=== PATIENT | female | born 1970 | race Caucasian/White ===

== ENCOUNTER 2017-05-13 15:58 | Emergency (ER) | payer MEDICAID ==
--- NOTE | 2017-05-13 16:33 | Emergency Department Record ---
History of Present Illness - General Chief Complaint: Fever Stated Complaint: FEVER/JUAN Time Seen by Provider: 05/13/17 16:25 Source: Patient Mode of Arrival: Ambulatory Limitations: No limitations - History of Present Illness Initial Comments: The patient is here due to a cough, congestion, runny nose and low grade fever for 2-3 days. She did have a fever of 101 last evening but today it is improved. She has had no antipyretics for at least 5 hours and now no fever. She is coughing off and on but not having any sputum production. The patient does have nasal congestion and did have a ST last night. She does have a hx of RA and is on immunosupressives so she is very concerned when she gets ill. MD Complaint: Fever, Malaise Onset/Timin -: Days(s) Maximum Temperature: 101 F Temperature Source: Oral Context: On immunosuppressant(s) Associated Symptoms: Cough, Nasal congestion, Rhinorrhea, Shortness of breath Treatments Prior to Arrival: Acetaminophen Treatment Prior to Arrival Comment:: Nyquil - Related Data Previous Rx's Medication Instructions Recorded Lisinopril 10 mg PO DAILY #30 tab 07/18/16 Allergies Allergy/AdvReac Type Severity Reaction Status Date / Time egg Allergy NAUSEA AND Verified 05/13/17 16:07 VOMITING Latex, Natural Rubber Allergy RASH Verified 05/13/17 16:07 naproxen Allergy NAUSEA AND Verified 05/13/17 16:07 VOMITING NSAIDS (Non-Steroidal Allergy vertigo Verified 05/13/17 16:07 Anti-Inflamma sulfamethoxazole Allergy RAPID Verified 05/13/17 16:07 [From Bactrim] HEART RATE trimethoprim [From Bactrim] Allergy RAPID Verified 05/13/17 16:07 HEART RATE [id number] Antimigraine Allergy ALTERED Verified 05/13/17 16:07 Agents MENTAL STATUS flu vaccine Allergy HIVES Uncoded 02/06/16 19:16 Travel Screening - Travel/Exposure Within Last 30 Days Have you traveled within the last 30 days?: No - Travel/Exposure Within Last Year Have you traveled outside the [place] in the last year?: No - Additonal Travel Details Have you been exposed to anyone with a communicable illness?: No - Travel Symptoms Symptom Screening: None Review of Systems Constitutional: Reports: Chills, Fever, Malaise Eyes: Denies: Eye discharge ENT: Reports: Congestion Respiratory: Reports: Cough. Denies: Dyspnea, Hemoptysis, Wheezes Past Medical History - SOCIAL HISTORY Smoking Status: Never smoker Alcohol Use: None Drug Use: None - RESPIRATORY Hx Respiratory Disorders: No - CARDIOVASCULAR Hx Cardio Disorders: No - NEURO Hx Neuro Disorders: Yes Hx Headaches: Yes - GI Hx GI Disorders: No - Hx Genitourinary Disorders: No - ENDOCRINE Hx Endocrine Disorders: No - MUSCULOSKELETAL Hx Musculoskeletal Disorders: Yes Hx Arthritis: Yes (Rheumatoid) Comment:: fibromyalgia - PSYCH Hx Psych Problems: No - HEMATOLOGY/ONCOLOGY Hx Hematology/Oncology Disorders: No Family Medical History Any Significant Family History?: Yes Family Hx Comment (NOT TO BE USED IN PLACE OF ITEMS BELOW): Parkinson's w/mom Hx Diabetes: Father Hx Heart Disease: Father, Brother/Sister Hx HTN: Father, Brother/Sister Hx Kidney Disease: Father, Brother/Sister Physical Exam - General General Appearance: Alert, Oriented x3, Cooperative, No acute distress - Head Head exam: Atraumatic, Normocephalic, Normal inspection - Eye Eye exam: Normal appearance, PERRL - ENT ENT exam: Normal exam, Mucous membranes moist, Normal external ear exam, Normal orophraynx, TM's normal bilaterally Throat exam: Normal inspection. negative: Tonsillar erythema, Tonsillar exudate - Neck Neck exam: Normal inspection, Full ROM. negative: Tenderness - Respiratory Respiratory exam: Normal lung sounds bilaterally. negative: Rales, Respiratory distress, Rhonchi, Stridor - Cardiovascular Cardiovascular Exam: Regular rate, Normal rhythm, Normal heart sounds - GI/Abdominal GI/Abdominal exam: Soft, Normal bowel sounds. negative: Tenderness - Extremities Extremities exam: Normal inspection, Full ROM, Normal capillary refill. negative: Tenderness - Neurological Neurological exam: Alert, Normal gait. negative: Abnormal gait, Motor sensory deficit Course Vital Signs 05/13/17 16:09 Temperature 98.6 F Pulse Rate 120 H Respiratory 20 Rate Pulse Ox 94 L - Reevaluation(s) Reevaluation #1: The patient's care will be turned over to Dr. Simental at 17:10. 05/13/17 17:12 Medical Decision Making - Lab Data Result diagrams: 05/13/17 16:40 05/13/17 16:40 Disposition Forms: Patient Portal Access Quality - Quality Measures Quality Measures: N/A - Blood Pressure Screening View Details: Yes Does Patient Have Any of the Following: No Blood Pressure Classification: Pre-Hypertensive BP Reading Systolic Measurement: 140 Diastolic Measurement: 87 Screening for High Blood Pressure: < Pre-Hypertensive BP, F/U Documented > [ G8950] Pre-Hypertensive Follow-up Interventions: Referral to alternative/primary care provider.
[2017-05-13] MEDS: ACETAMINOPHEN 325 MG TAB PO ONE (16:46)
[2017-05-13] MEDS: PROMETHAZINE W/CODEINE 10ML UD PO ONE (16:47)
[2017-05-13] MEDS: 0.9 % SODIUM CHLORIDE 1,000 ML BAG IV ONE (16:47)
[2017-05-13 16:52] LABS: BASO % 0.2 % (0-6); GRAN % 67.5 % (47-80); HEMATOCRIT 44.1 % (35.0-47.0); HEMOGLOBIN 15.1 gm/dl (11.6-16.0); LYMPH % 16.9 % (16-45); MEAN CELL VOLUME 85.8 fl (81-97); MEAN CORPUSCULAR HEMOGLOBIN 29.4 pg (27-33); MEAN CORPUSCULAR HGB CONC 34.2 g/dl (32-36); MEAN PLATELET VOLUME 10.1 fl (7.4-10.4); MONO % 11.4 % (0-9); PLATELET COUNT 232 K/uL (130-400); RED BLOOD COUNT 5.14 M/uL (3.80-5.40)
[2017-05-13 17:15] LABS: BLOOD UREA NITROGEN 25.2 mg/dL (12.6-42.6); C-REACTIVE PROTEIN 8.25 mg/L (<5.0); CREATININE 0.7 mg/dL (0.5-0.9); EST GLOMERULAR FILTRATION RATE > 60 mL/min; GLUCOSE,RANDOM 109 mg/dL (74-109)
[2017-05-13] MEDS ORDERED: LEVOFLOXACIN/D5W 750 MG/150 ML BAG IVPB SCH (17:15)
[2017-05-13] MEDS: LEVOFLOXACIN/D5W 750 MG/150 ML BAG IVPB ONE (17:16)
--- NOTE | 2017-05-13 17:33 | Emergency Department Record ---
History of Present Illness - General Chief Complaint: Fever Stated Complaint: FEVER/JUAN Time Seen by Provider: 05/13/17 16:25 Source: Patient Mode of Arrival: Ambulatory Limitations: No limitations - History of Present Illness Onset/Timin -: Days(s) Treatments Prior to Arrival: Acetaminophen Treatment Prior to Arrival Comment:: Nyquil - Related Data Previous Rx's Medication Instructions Recorded Lisinopril 10 mg PO DAILY #30 tab 07/18/16 Amoxicillin/Potassium Clav 1 each PO BID #14 tab.er.12h 05/13/17 [Augmentin Xr 1,000-62.5 Tab] Azithromycin [Zithromax] 250 mg PO DAILY #4 tablet 05/13/17 Allergies Allergy/AdvReac Type Severity Reaction Status Date / Time egg Allergy NAUSEA AND Verified 05/13/17 16:07 VOMITING Latex, Natural Rubber Allergy RASH Verified 05/13/17 16:07 naproxen Allergy NAUSEA AND Verified 05/13/17 16:07 VOMITING NSAIDS (Non-Steroidal Allergy vertigo Verified 05/13/17 16:07 Anti-Inflamma sulfamethoxazole Allergy RAPID Verified 05/13/17 16:07 [From Bactrim] HEART RATE trimethoprim [From Bactrim] Allergy RAPID Verified 05/13/17 16:07 HEART RATE [id number] Antimigraine Allergy ALTERED Verified 05/13/17 16:07 Agents MENTAL STATUS flu vaccine Allergy HIVES Uncoded 02/06/16 19:16 Travel Screening - Travel/Exposure Within Last 30 Days Have you traveled within the last 30 days?: No - Travel/Exposure Within Last Year Have you traveled outside the [place] in the last year?: No - Additonal Travel Details Have you been exposed to anyone with a communicable illness?: No - Travel Symptoms Symptom Screening: None Review of Systems Constitutional: Reports: Chills, Fever, Malaise Eyes: Denies: Eye discharge ENT: Reports: Congestion Respiratory: Reports: Cough. Denies: Dyspnea, Hemoptysis, Wheezes Past Medical History - SOCIAL HISTORY Smoking Status: Never smoker Alcohol Use: None Drug Use: None - RESPIRATORY Hx Respiratory Disorders: No - CARDIOVASCULAR Hx Cardio Disorders: No - NEURO Hx Neuro Disorders: Yes Hx Headaches: Yes - GI Hx GI Disorders: No - Hx Genitourinary Disorders: No - ENDOCRINE Hx Endocrine Disorders: No - MUSCULOSKELETAL Hx Musculoskeletal Disorders: Yes Hx Arthritis: Yes (Rheumatoid) Comment:: fibromyalgia - PSYCH Hx Psych Problems: No - HEMATOLOGY/ONCOLOGY Hx Hematology/Oncology Disorders: No Family Medical History Any Significant Family History?: Yes Family Hx Comment (NOT TO BE USED IN PLACE OF ITEMS BELOW): Parkinson's w/mom Hx Diabetes: Father Hx Heart Disease: Father, Brother/Sister Hx HTN: Father, Brother/Sister Hx Kidney Disease: Father, Brother/Sister Physical Exam - General Limitations: No limitations Course Vital Signs 05/13/17 05/13/17 16:09 16:58 Temperature 98.6 F Pulse Rate 120 H Pulse Rate [ 114 H Pulse Ox Probe] Respiratory 20 18 Rate Blood Pressure 140/87 [Left Arm] Pulse Ox 94 L 94 L - Reevaluation(s) Reevaluation #1: The case was signed out by Dr Diego at the bedside Labs were reviewed Influenza Swab was sent and the CXR was reviewed Radiology read was consistent with atelectasis or infiltrate in the left base Dr Diego ordered IV Levaquin and the patient was updated 05/13/17 17:26 Reevaluation #2: The Influenza tests were negative The patient is doing well with improved HR She is 97 % on RA The Levaquin was completed She was given DC instructions as well has instructions for a recheck or return to the ED if any concerns. 05/13/17 17:59 The patient received most of the Levaquin and developed hives to the left arm She will be placed on both Augmentin and Zithromax as an outpatient given her potential immune suppression No JUAN, throat or facial swelling. No diffuse hives. 05/13/17 18:11 She will be instructed to list Levaquin as an allergy 05/13/17 18:18 Medical Decision Making - Lab Data Result diagrams: 05/13/17 16:40 05/13/17 16:40 Lab Results 05/13/17 05/13/17 Range/Units 16:40 16:40 WBC 9.0 (4.2-12.2) K/uL RBC 5.14 (3.80-5.40) M/uL Hgb 15.1 (11.6-16.0) gm/dl Hct 44.1 (35.0-47.0) % MCV 85.8 (81-97) fl MCH 29.4 (27-33) pg MCHC 34.2 (32-36) g/dl RDW 13.0 (11.5-14.5) % Plt Count 232 (130-400) K/uL MPV 10.1 (7.4-10.4) fl Gran % 67.5 (47-80) % Lymphocytes % 16.9 (16-45) % Monocytes % 11.4 H (0-9) % Eosinophils % 4.0 (0-6) % Basophils % 0.2 (0-6) % Sodium 139 (136-145) mmol/L Potassium 3.6 (3.4-4.5) mmol/L Chloride 101 (98-107) mmol/L Carbon Dioxide 25.0 (22-29) mmol/L Anion Gap 13.0 (7-16) BUN 25.2 (12.6-42.6) mg/dL Creatinine 0.7 (0.5-0.9) mg/dL Estimated GFR > 60 mL/min Random Glucose 109 (74-109) mg/dL Calcium 9.0 (8.6-10.0) mg/dL C-Reactive Protein 8.25 H (<5.0) mg/L Disposition Disposition: Discharge Clinical Impression: Pneumonia Qualifiers: Pneumonia type: due to unspecified organism Laterality: left Lung location: unspecified part of lung Qualified Code(s): J18.9 - Pneumonia, unspecified organism Disposition: Home, Self-Care Condition: (1) Good Instructions: Pneumonia (ED) Additional Instructions: Return immediately if worse, fever, vomiting or short of breath Return for a recheck in the ER any time if you have any concerns about your cough List Levaquin as an allergy Take the Augmentin and Zithromax as directed Call your Doctor on Monday for close follow up and a recheck in the office Prescriptions: Amoxicillin/Potassium Clav [Augmentin Xr 1,000-62.5 Tab] 1 each PO BID #14 tab.er.12h Azithromycin [Zithromax] 250 mg PO DAILY #4 tablet Forms: Patient Portal Access Time of Disposition: 18:01 Quality - Quality Measures Quality Measures: N/A - Blood Pressure Screening Does Patient Have Any of the Following: No Blood Pressure Classification: Normal BP Reading Systolic Measurement: 118 Diastolic Measurement: 67 Screening for High Blood Pressure: < Normal BP, F/U Not Required > [G8783]
[2017-05-13 17:57] LABS: INFLUENZA A NEGATIVE (NEGATIVE); INFLUENZA B NEGATIVE (NEGATIVE)
[2017-05-13] MEDS: AMOXICILLIN/POTASSIUM CLAV 875MG/125MG TABLET PO ONE (18:23)
[2017-05-13] MEDS: DIPHENHYDRAMINE HCL IV 50 MG/ML VIAL IVP ONE (18:23)
[2017-05-13] MEDS: AZITHROMYCIN 500 MG TABLET PO ONE (18:23)
--- NOTE | 2017-05-15 07:53 | RADIOLOGY REPORT ---
EXAM: CHEST, TWO VIEWS HISTORY: COUGH, FEVER, AND DYSPNEA SINCE MONDAY (TWO DAYS PRIOR). TECHNIQUE: Two views of the chest were obtained. Comparison: 01/07/17. FINDINGS: The heart is not enlarged. There appear to be some streaky densities at the left lung base on frontal view not as well appreciated on lateral view which may relate to atelectasis or developing infiltrate. No large focal consolidation or pleural effusion. Suggestion of calcified granulomata right upper lobe. IMPRESSION: MILD ATELECTASIS OR INFILTRATE LEFT LUNG BASE. JOB NUMBER: [id number] MTDD
== END 2017-05-13 19:05 | disposition home or self-care (01) ==
LOC: ER 15:58
DX: J18.9 Pneumonia, unspecified organism (principal); R53.81 Other malaise; R06.02 Shortness of breath
CPT/HCPCS: 99284 ×2; 96374; 96375; 85025; 86140; 80048; 87400; 71020; J1956; J1200; J7030

== ENCOUNTER 2017-08-03 23:11 | Inpatient (IN) | payer MEDICAID ==
[2017-08-03] MEDS ORDERED: 0.9 % SODIUM CHLORIDE 1,000 ML BAG IV ONE (23:27)
[2017-08-03] MEDS ORDERED: ONDANSETRON HCL IV 4 MG/2 ML VIAL IV ONE (23:27)
[2017-08-03 23:37] LABS: BASO % 0.3 % (0-6); EOS % 1.6 % (0-6); GRAN % 74.6 % (47-80); HEMATOCRIT 44.6 % (35.0-47.0); HEMOGLOBIN 15.4 gm/dl (11.6-16.0); LYMPH % 17.7 % (16-45); MEAN CELL VOLUME 84.3 fl (81-97); MEAN CORPUSCULAR HEMOGLOBIN 29.1 pg (27-33); MEAN CORPUSCULAR HGB CONC 34.5 g/dl (32-36); MEAN PLATELET VOLUME 10.8 fl (7.4-10.4); MONO % 5.8 % (0-9); PLATELET COUNT 260 K/uL (130-400); RED BLOOD COUNT 5.29 M/uL (3.80-5.40); RED CELL DISTRIBUTION WIDTH 12.7 % (11.5-14.5); WHITE BLOOD COUNT W/O DIFF 10.5 K/uL (4.2-12.2)
[2017-08-03 23:51] LABS: BLOOD UREA NITROGEN 16 mg/dL (6-20); CREATININE 0.6 mg/dL (0.5-0.9); EST GLOMERULAR FILTRATION RATE > 60 mL/min
[2017-08-03 23:52] LABS: TOTAL PROTEIN 7.8 g/dL (6.6-8.7)
[2017-08-03 23:54] LABS: GLUCOSE,RANDOM 128 mg/dL (74-109)
[2017-08-03 23:56] LABS: ALT/SGPT 35 U/L (<33); AST/SGOT 22 U/L (10.0-35.0)
[2017-08-03 23:57] LABS: ALB/GLOB RATIO 1.3 (1.1-1.8); ALBUMIN 4.4 g/dL (4.0-5.0); ALKALINE PHOSPHATASE 82 U/L (35-104); LIPASE 33 U/L (13-60)
[2017-08-04] MEDS ORDERED: 0.9 % SODIUM CHLORIDE 1,000 ML BAG IV ONE (00:14)
[2017-08-04] MEDS ORDERED: KETOROLAC 30 MG/ML VIAL IVP ONE (00:16)
[2017-08-04] MEDS ORDERED: HYDROMORPHONE HCL 1 MG/ML SYRINGE IVP ONE (01:01)
--- NOTE | 2017-08-04 01:01 | Emergency Department Record ---
History of Present Illness - General Chief complaint: Nausea, Vomiting, Diarrhea Stated complaint: NAUSEA/VOMITING/DIARRHEA/ABD CRAMPS Time Seen by Provider: 08/03/17 23:25 Source: Patient Mode of Arrival: Ambulatory Limitations: No limitations - History of Present Illness Initial comments: pt here for vomiting and diarrhea for 2 days and then developed severe abd pain that is crampy today. she has hx of a bowel resection due to complications of a hysterectomy years ago MD complaint: Abdominal pain, Diarrhea, Nausea, Vomiting Onset/Timin -: Days(s) Location: LUQ, Periumbilcal Radiation: None Severity: Moderate Quality: Cramping Consistency: Constant Improves with: None Worsens with: None Context: Sick contacts Associated Symptoms: Loss of appetite, Nausea/vomiting - Related Data Previous Rx's Medication Instructions Recorded Lisinopril 10 mg PO DAILY #30 tab 07/18/16 Allergies Allergy/AdvReac Type Severity Reaction Status Date / Time egg Allergy NAUSEA AND Verified 05/13/17 16:07 VOMITING Latex, Natural Rubber Allergy RASH Verified 05/13/17 16:07 levofloxacin [From Levaquin] Allergy HIVES Verified 05/13/17 18:30 naproxen Allergy NAUSEA AND Verified 05/13/17 16:07 VOMITING NSAIDS (Non-Steroidal Allergy vertigo Verified 05/13/17 16:07 Anti-Inflamma sulfamethoxazole Allergy RAPID Verified 05/13/17 16:07 [From Bactrim] HEART RATE trimethoprim [From Bactrim] Allergy RAPID Verified 05/13/17 16:07 HEART RATE [id number] Antimigraine Allergy ALTERED Verified 05/13/17 16:07 Agents MENTAL STATUS Travel Screening - Travel/Exposure Within Last 30 Days Have you traveled within the last 30 days?: No - Travel/Exposure Within Last Year Have you traveled outside the [place] in the last year?: No - Additonal Travel Details Have you been exposed to anyone with a communicable illness?: No Review of Systems Reviewed: No additional complaints except as noted below Constitutional: Reports: As per HPI. Denies: Chills, Fever, Malaise, Night sweats, Weakness, Weight change Eyes: Reports: As per HPI. Denies: Eye discharge, Eye pain, Photophobia, Vision change ENT: Reports: As per HPI. Denies: Congestion, Dental pain, Ear pain, Epistaxis , Hearing loss, Throat pain Respiratory: Reports: As per HPI. Denies: Cough, Dyspnea, Hemoptysis, Stridor, Wheezes Cardiovascular: Reports: As per HPI. Denies: Arrhythmia, Chest pain, Dyspnea on exertion, Edema, Murmurs, Orthopnea, Palpitations, Paroxysmal nocturnal dyspnea, Rheumatic Fever, Syncope Endocrine: Reports: As per HPI. Denies: Fatigue, Heat or cold intolerance, Polydipsia, Polyuria Gastrointestinal: Reports: As per HPI. Denies: Abdominal pain, Constipation, Diarrhea, Hematemesis, Hematochezia, Melena, Nausea, Vomiting Genitourinary: Reports: As per HPI. Denies: Abnormal menses, Discharge, Dyspareunia, Dysuria, Frequency, Hematuria, Incontinence, Retention, Urgency Musculoskeletal: Reports: As per HPI. Denies: Arthralgia, Back pain, Gout, Joint swelling, Myalgia, Neck pain Skin: Reports: As per HPI. Denies: Bruising, Change in color, Change in hair/ nails, Lesions, Pruritus, Rash Neurological: Reports: As per HPI. Denies: Abnormal gait, Confusion, Headache, Numbness, Paresthesias, Seizure, Tingling, Tremors, Vertigo, Weakness Psychiatric: Reports: As per HPI. Denies: Anxiety, Auditory hallucinations, Depression, Homicidal thoughts, Suicidal thoughts, Visual hallucinations Hematological/Lymphatic: Reports: As per HPI. Denies: Anemia, Blood Clots, Easy bleeding, Easy bruising, Swollen glands Past Medical History - SOCIAL HISTORY Smoking Status: Never smoker Alcohol Use: None Drug Use: None - RESPIRATORY Hx Respiratory Disorders: No - CARDIOVASCULAR Hx Cardio Disorders: No - NEURO Hx Neuro Disorders: Yes Hx Headaches: Yes - GI Hx GI Disorders: No - Hx Genitourinary Disorders: No - ENDOCRINE Hx Endocrine Disorders: No - MUSCULOSKELETAL Hx Musculoskeletal Disorders: Yes Hx Arthritis: Yes (Rheumatoid) Comment:: fibromyalgia - PSYCH Hx Psych Problems: No - HEMATOLOGY/ONCOLOGY Hx Hematology/Oncology Disorders: No Family Medical History Any Significant Family History?: Yes Family Hx Comment (NOT TO BE USED IN PLACE OF ITEMS BELOW): Parkinson's w/mom Hx Diabetes: Father Hx Heart Disease: Father, Brother/Sister Hx HTN: Father, Brother/Sister Hx Kidney Disease: Father, Brother/Sister Physical Exam - General General Appearance: Alert, Oriented x3, Cooperative, Mild distress - Head Head exam: Normal inspection - Eye Eye exam: Normal appearance, PERRL, EOMI Pupils: Normal accommodation - ENT ENT exam: Normal exam, Mucous membranes moist, Normal external ear exam, Normal orophraynx Ear exam: Normal external inspection. negative: External canal tenderness Nasal Exam: Normal inspection. negative: Discharge, Sinus tenderness Mouth exam: Normal external inspection, Tongue normal Teeth exam: Normal inspection. negative: Dental caries Throat exam: Normal inspection. negative: Tonsillar erythema, Tonsillar exudate - Neck Neck exam: Normal inspection, Full ROM. negative: Tenderness - Respiratory Respiratory exam: Normal lung sounds bilaterally. negative: Respiratory distress - Cardiovascular Cardiovascular Exam: Regular rate, Normal rhythm, Normal heart sounds - GI/Abdominal GI/Abdominal exam: Soft, Tenderness - Rectal Rectal exam: Deferred - exam: Deferred - Extremities Extremities exam: Normal inspection, Full ROM, Normal capillary refill. negative: Tenderness - Back Back exam: Reports: Normal inspection, Full ROM. Denies: Muscle spasm, Rash noted, Tenderness - Neurological Neurological exam: Alert, CN II-XII intact, Normal gait, Oriented X3 - Psychiatric Psychiatric exam: Normal affect, Normal mood - Skin Skin exam: Dry, Intact, Normal color, Warm Course Vital Signs 08/03/17 08/04/17 23:24 00:14 Temperature 97.8 F Pulse Rate [ 103 H 88 Pulse Ox Probe] Respiratory 20 20 Rate Blood Pressure 147/80 142/78 [Left Arm] Pulse Ox 98 100 - Reevaluation(s) Reevaluation #1: 08/04/17 01:00 d/w dr layton Medical Decision Making - Lab Data Result diagrams: 08/03/17 23:25 08/03/17 23:25 Lab Results 08/03/17 08/03/17 Range/Units 23:25 23:25 WBC 10.5 (4.2-12.2) K/uL RBC 5.29 (3.80-5.40) M/uL Hgb 15.4 (11.6-16.0) gm/dl Hct 44.6 (35.0-47.0) % MCV 84.3 (81-97) fl MCH 29.1 (27-33) pg MCHC 34.5 (32-36) g/dl RDW 12.7 (11.5-14.5) % Plt Count 260 (130-400) K/uL MPV 10.8 H (7.4-10.4) fl Gran % 74.6 (47-80) % Lymphocytes % 17.7 (16-45) % Monocytes % 5.8 (0-9) % Eosinophils % 1.6 (0-6) % Basophils % 0.3 (0-6) % Sodium 139 (136-145) mmol/L Potassium 4.3 (3.4-4.5) mmol/L Chloride 101 (98-107) mmol/L Carbon Dioxide 24.0 (22-29) mmol/L Anion Gap 14.0 (7-16) BUN 16 (6-20) mg/dL Creatinine 0.6 (0.5-0.9) mg/dL Estimated GFR > 60 mL/min Random Glucose 128 H (74-109) mg/dL Calcium 9.2 (8.6-10.0) mg/dL Total Bilirubin 0.50 (0.2-1.0) mg/dL AST 22 (10.0-35.0) U/L ALT 35 H (<33) U/L Alkaline Phosphatase 82 (35-104) U/L Total Protein 7.8 (6.6-8.7) g/dL Albumin 4.4 (4.0-5.0) g/dL Globulin 3.4 (1.4-4.8) gm/dL Albumin/Globulin Ratio 1.3 (1.1-1.8) Lipase 33 (13-60) U/L Disposition Disposition: Admit Clinical Impression: Partial small bowel obstruction Disposition: Still a Patient at [facility] Decision to Admit: Admit from ER Decision to Admit Date: 08/04/17 Decision to Admit Time: 01:12 Forms: Patient Portal Access Quality - Quality Measures Quality Measures: N/A - Blood Pressure Screening Does Patient Have Any of the Following: No Blood Pressure Classification: Pre-Hypertensive BP Reading Systolic Measurement: 135 Diastolic Measurement: 75 Screening for High Blood Pressure: < Pre-Hypertensive BP, F/U Documented > [ G8950] Pre-Hypertensive Follow-up Interventions: Follow-up with rescreen every year.
[2017-08-04] MEDS ORDERED: ONDANSETRON HCL IV 4 MG/2 ML VIAL IVP PRN (01:47)
[2017-08-04] MEDS ORDERED: INFLIXIMAB 100 MG IV SCH (01:47)
[2017-08-04] MEDS ORDERED: HYDROMORPHONE HCL 1 MG/ML SYRINGE IVP PRN (01:47)
[2017-08-04] MEDS: 0.9 % SODIUM CHLORIDE 1000ML 1,000 ML IV PRN ×2 (04:27→13:09)
[2017-08-04 06:57] LABS: BASO % 0.2 % (0-6); EOS % 1.7 % (0-6); GRAN % 69.8 % (47-80); HEMATOCRIT 39.8 % (35.0-47.0); HEMOGLOBIN 13.2 gm/dl (11.6-16.0); MEAN CELL VOLUME 86.7 fl (81-97); MEAN CORPUSCULAR HEMOGLOBIN 28.8 pg (27-33); MEAN CORPUSCULAR HGB CONC 33.2 g/dl (32-36); MEAN PLATELET VOLUME 10.4 fl (7.4-10.4); MONO % 7.3 % (0-9); PLATELET COUNT 214 K/uL (130-400); RED BLOOD COUNT 4.59 M/uL (3.80-5.40); RED CELL DISTRIBUTION WIDTH 12.8 % (11.5-14.5); WHITE BLOOD COUNT W/O DIFF 8.7 K/uL (4.2-12.2)
[2017-08-04] MEDS: LISINOPRIL 10 MG TABLET PO SCH (10:13)
[2017-08-04] MEDS: HYDROXYCHLOROQUINE SULFATE 200 MG TABLET PO SCH ×2 (10:13→21:21)
[2017-08-04] MEDS: PILOCARPINE HCL 5 MG PO SCH ×3 (13:08→21:22)
--- NOTE | 2017-08-04 13:09 | RADIOLOGY REPORT ---
EXAM: ABDOMEN HISTORY: ABDOMINAL PAIN. TECHNIQUE: Supine and upright views of the abdomen were performed. FINDINGS: There is a nonspecific bowel gas pattern. There is mild increased stool within the right colon. No evidence of obstruction. No free air. No radiopaque densities. Mild degenerative change at the L4-L5 level. IMPRESSION: MILD INCREASED STOOL IN THE RIGHT HEMICOLON. THE REMAINDER OF THE EXAMINATION IS UNREMARKABLE. JOB NUMBER: [id number] MTDD
--- NOTE | 2017-08-04 13:16 | CT SCAN REPORT ---
EXAM: CT OF THE ABDOMEN AND PELVIS WITHOUT CONTRAST HISTORY: ABDOMINAL PAIN. TECHNIQUE: Sequential axial images were obtained from the diaphragms through the ischiorectal fossa without intravenous contrast administration. FINDINGS: There is a 2 mm subpleural nodular density in the right lung base. The liver, gallbladder, pancreas and spleen appear normal. The adrenal glands and kidneys are normal. No CT findings suggestive of obstructive uropathy. There are distended loops of small bowel in the left lizeth-abdomen. The transition point appears to be at the anastomosis. There is a small amount of free fluid in the abdomen. There is a 4.4 cm cyst in the expected region of the left ovary. The colon appears normal. The uterus is surgically absent. The urinary bladder appears normal. IMPRESSION: 1. MILDLY DISTENDED LOOPS OF SMALL BOWEL WITH SMALL BOWEL FECES SIGN. THE TRANSITION POINT APPEARS TO BE AT THE ANASTOMOSIS. SMALL AMOUNT OF FLUID WITHIN THE ABDOMEN AND PELVIS. 2. FINDINGS ARE LIKELY SUGGESTIVE OF EARLY OR PARTIAL SMALL BOWEL OBSTRUCTION. 3. 4.4 CM LEFT ADNEXAL CYSTIC LESION. 4. 2 MM SUBPLEURAL NODULAR DENSITY IN THE RIGHT LUNG BASE. JOB NUMBER: [id number] MTDD
[2017-08-04 15:49] LABS: URINE APPEARANCE CLEAR; URINE BILIRUBIN NEGATIVE (NEGATIVE); URINE BLOOD NEGATIVE (NEGATIVE); URINE COLOR YELLOW; URINE GLUCOSE (UA) NEGATIVE (NEGATIVE); URINE KETONE NEGATIVE (NEGATIVE); URINE LEUKOCYTE ESTERASE NEGATIVE (NEGATIVE); URINE NITRITE NEGATIVE (NEGATIVE); URINE PROTEIN NEGATIVE (NEGATIVE); URINE UROBILINOGEN 0.2 E.U./dL (0.20 - 1.00)
[2017-08-04] MEDS ORDERED: PANTOPRAZOLE SODIUM IV 40 MG VIAL IVP SCH (17:00)
[2017-08-04] MEDS: ENOXAPARIN 40 MG/0.4 ML SYR SQ SCH (17:59)
[2017-08-04] MEDS: MAGNESIUM HYDROXIDE 30 ML UDC PO PRN (18:02)
[2017-08-04] MEDS ORDERED: ACETAMINOPHEN 500 MG TABLET PO ONE (18:36)
[2017-08-05] MEDS: MAGNESIUM HYDROXIDE 30 ML UDC PO PRN (07:10)
[2017-08-05] MEDS: LISINOPRIL 10 MG TABLET PO SCH (09:45)
[2017-08-05] MEDS: ENOXAPARIN 40 MG/0.4 ML SYR SQ SCH (09:45)
[2017-08-05] MEDS: HYDROXYCHLOROQUINE SULFATE 200 MG TABLET PO SCH (09:45)
[2017-08-05] MEDS: PILOCARPINE HCL 5 MG PO SCH (09:46)
--- NOTE | 2017-08-07 08:59 | History and Physical Report ---
DATE OF ADMISSION: 08/04/2017 CHIEF COMPLAINT: Abdominal pain. HISTORY OF CHIEF COMPLAINT: The patient is a 47-year-old female who stated about 24 hours ago she developed some intense abdominal pain in her mid abdomen. This was accompanied by some mild nausea and vomiting. The pain became so great that she was seen in [facility] ER. At this time a full workup was done. This did include laboratory value and CT scan. Laboratory values were essentially normal with an absence of a white count or any major electrolyte abnormalities. CT scan was done which did show findings consistent with a partial small bowel obstruction. The patient has a past surgical history of open hysterectomy and left oophorectomy. She stated that she had to come back to the hospital about a month later due to what she describes as a perforated small bowel. She underwent laparotomy and segmental small bowel resection at that time. Since being admitted here in the hospital, she has been put on sips of fluids which she has tolerated well. Her pain is almost gone and she is not nauseated. She states that she has been passing gas today with no bowel movement. PAST MEDICAL HISTORY: Sjogren syndrome, fibromyalgia, rheumatoid arthritis, hypercholesterolemia. PAST SURGICAL HISTORY: Open hysterectomy with left oophorectomy, laparoscopy, exploratory laparotomy, and segmental small bowel resection. CURRENT MEDICATIONS: 1. Plaquenil. 2. Zestril. 3. Pilocarpine. 4. Zofran. ALLERGIES: She has multiple allergies including LATEX, EGGS, LEVAQUIN, NAPROXEN. SOCIAL HISTORY: She denies any tobacco or alcohol usage. PHYSICAL EXAMINATION: VITAL SIGNS: Stable. She is afebrile. HEART: Regular rate and rhythm. LUNGS: Clear. ABDOMEN: Soft. Minimally tender. There is no guarding or rebound. No peritoneal signs noted. Bowel sounds are noted. She has a well-healed midline laparotomy incision. She has a well-healed laparoscopy incision. LABORATORY DATA: Reviewed. White count 8.7, lactic acid 1.2, normal chemistries. Repeat flat plate and upright do show copious amounts of stool in her colon. No obvious signs of complete bowel obstruction. IMPRESSION: Partial small bowel obstruction. PLAN: Would continue conservative management. I will start her on a clear liquid diet and restart her home medications and give her some bowel stim. We will reevaluate her in the morning for possible discharge. DAR
== END 2017-08-05 14:30 | disposition home or self-care (01) | DRG 390 ==
LOC: ER 23:11 → MEDSURG 08-04 01:32
PROVIDERS: ADMIT Surgery; ATTEND Surgery
DX: K56.600 Partial intestinal obstruction, unspecified as to cause (principal); R11.2 Nausea with vomiting, unspecified; M06.9 Rheumatoid arthritis, unspecified; M79.7 Fibromyalgia; M35.00 Sjogren syndrome, unspecified
CPT/HCPCS: 74020; 74176; 80053; 81003; 83605; 83690; 85025; 96361; 96374; 96375; 99285; C9113; J1170; J1650; J1885; J2405; J7030

== ENCOUNTER 2018-06-15 16:58 | Observation (INO) | payer MEDICAID ==
--- NOTE | 2018-06-15 18:02 | Emergency Department Record ---
History of Present Illness - General Source: Patient Mode of Arrival: Ambulatory Limitations: No limitations - History of Present Illness Initial Comments: pt here for severe abd pain that started today. it is crampy and feels like previous bowel obstruction. she has not vomited. she has had no bm for 3 days MD Complaint: Abdominal pain Onset/Timin -: Hour(s) Location: Periumbilical, Suprapubic, LUQ, RUQ Radiation: Bilateral flank Severity: Severe Severity scale (1-10): 8 Quality: Cramping, Stabbing Consistency: Getting worse Improves With: Nothing Worsens With: Nothing Context: Recent antibiotic use Associated Symptoms: Nausea <Kaitlin Reid - Last Filed: 06/15/18 18:49> <Sincere Diego - Last Filed: 06/15/18 21:24> - General Chief Complaint: Abdominal Pain Stated Complaint: ABD PAIN Time Seen by Provider: 06/15/18 17:47 - Related Data Home Medications Medication Instructions Recorded Confirmed Last Taken Amoxicillin/Potassium Clav 1 tab PO BID 06/15/18 06/15/18 06/15/18 [Augmentin 875-125 Tablet] Previous Rx's Medication Instructions Recorded Lisinopril 10 mg PO DAILY #30 tab 07/18/16 Allergies Allergy/AdvReac Type Severity Reaction Status Date / Time egg Allergy NAUSEA AND Verified 06/15/18 20:27 VOMITING iodine Allergy ANAPHYLAXIS Verified 06/15/18 20:27 Latex, Natural Rubber Allergy RASH Verified 06/15/18 20:27 levofloxacin [From Levaquin] Allergy HIVES Verified 06/15/18 20:27 naproxen Allergy NAUSEA AND Verified 06/15/18 20:27 VOMITING NSAIDS (Non-Steroidal Allergy vertigo Verified 06/15/18 20:27 Anti-Inflamma sulfamethoxazole Allergy RAPID Verified 06/15/18 20:27 [From Bactrim] HEART RATE trimethoprim [From Bactrim] Allergy RAPID Verified 06/15/18 20:27 HEART RATE [id number] Antimigraine Allergy ALTERED Verified 06/15/18 20:27 Agents MENTAL STATUS Travel Screening - Travel/Exposure Within Last 30 Days Have you traveled within the last 30 days?: No - Travel/Exposure Within Last Year Have you traveled outside the [place] in the last year?: No - Additonal Travel Details Have you been exposed to anyone with a communicable illness?: No - Travel Symptoms Symptom Screening: None <Kaitlin Reid - Last Filed: 06/15/18 18:49> Review of Systems Reviewed: No additional complaints except as noted below Constitutional: Reports: As per HPI. Denies: Chills, Fever, Malaise, Night sweats, Weakness, Weight change Eyes: Reports: As per HPI. Denies: Eye discharge, Eye pain, Photophobia, Vision change ENT: Reports: As per HPI. Denies: Congestion, Dental pain, Ear pain, Epistaxis , Hearing loss, Throat pain Respiratory: Reports: As per HPI. Denies: Cough, Dyspnea, Hemoptysis, Stridor, Wheezes Cardiovascular: Reports: As per HPI. Denies: Arrhythmia, Chest pain, Dyspnea on exertion, Edema, Murmurs, Orthopnea, Palpitations, Paroxysmal nocturnal dyspnea, Rheumatic Fever, Syncope Endocrine: Reports: As per HPI. Denies: Fatigue, Heat or cold intolerance, Polydipsia, Polyuria Gastrointestinal: Reports: As per HPI, Abdominal pain, Constipation, Nausea. Denies: Diarrhea, Hematemesis, Hematochezia, Melena, Vomiting Genitourinary: Reports: As per HPI. Denies: Abnormal menses, Discharge, Dyspareunia, Dysuria, Frequency, Hematuria, Incontinence, Retention, Urgency Musculoskeletal: Reports: As per HPI. Denies: Arthralgia, Back pain, Gout, Joint swelling, Myalgia, Neck pain Skin: Reports: As per HPI. Denies: Bruising, Change in color, Change in hair/ nails, Lesions, Pruritus, Rash Neurological: Reports: As per HPI. Denies: Abnormal gait, Confusion, Headache, Numbness, Paresthesias, Seizure, Tingling, Tremors, Vertigo, Weakness Psychiatric: Reports: As per HPI. Denies: Anxiety, Auditory hallucinations, Depression, Homicidal thoughts, Suicidal thoughts, Visual hallucinations Hematological/Lymphatic: Reports: As per HPI. Denies: Anemia, Blood Clots, Easy bleeding, Easy bruising, Swollen glands <Kaitlin Reid - Last Filed: 06/15/18 18:49> Past Medical History - SOCIAL HISTORY Smoking Status: Never smoker Alcohol Use: None Drug Use: None - RESPIRATORY Hx Respiratory Disorders: Yes Hx Bronchitis: Yes - CARDIOVASCULAR Hx Cardio Disorders: No - NEURO Hx Neuro Disorders: Yes Hx Headaches: Yes - GI Hx GI Disorders: Yes Hx Abdominal Pain: Yes Hx Reflux: Yes Comment:: partial bowel resection - Hx Genitourinary Disorders: No - ENDOCRINE Hx Endocrine Disorders: Yes Hx Thyroid Disease: Yes (goiter) - MUSCULOSKELETAL Hx Musculoskeletal Disorders: Yes Hx Arthritis: Yes (Rheumatoid) Comment:: fibromyalgia, shogrins - PSYCH Hx Psych Problems: No - HEMATOLOGY/ONCOLOGY Hx Hematology/Oncology Disorders: No <Kaitlin Reid - Last Filed: 06/15/18 18:49> Family Medical History Any Significant Family History?: No Family Hx Comment (NOT TO BE USED IN PLACE OF ITEMS BELOW): Parkinson's w/mom. brother has chrons Hx Diabetes: Father Hx Heart Disease: Father, Brother/Sister Hx HTN: Father, Brother/Sister Hx Kidney Disease: Father, Brother/Sister <Kaitlin Reid - Last Filed: 06/15/18 18:49> Physical Exam - General General Appearance: Alert, Oriented x3, Cooperative, Mild distress - Head Head exam: Normal inspection - Eye Eye exam: Normal appearance, PERRL, EOMI Pupils: Normal accommodation - ENT ENT exam: Normal exam, Mucous membranes moist, Normal external ear exam, Normal orophraynx Ear exam: Normal external inspection. negative: External canal tenderness Nasal Exam: Normal inspection. negative: Discharge, Sinus tenderness Mouth exam: Normal external inspection, Tongue normal Teeth exam: Normal inspection. negative: Dental caries Throat exam: Normal inspection. negative: Tonsillar erythema, Tonsillar exudate - Neck Neck exam: Normal inspection, Full ROM. negative: Tenderness - Respiratory Respiratory exam: Normal lung sounds bilaterally. negative: Respiratory distress - Cardiovascular Cardiovascular Exam: Regular rate, Normal rhythm, Normal heart sounds - GI/Abdominal GI/Abdominal exam: Soft, Normal bowel sounds, Distended, Guarding, Tenderness ( diffusely) - Rectal Rectal exam: Deferred - exam: Deferred - Extremities Extremities exam: Normal inspection, Full ROM, Normal capillary refill. negative: Tenderness - Back Back exam: Reports: Normal inspection, Full ROM. Denies: Muscle spasm, Rash noted, Tenderness - Neurological Neurological exam: Alert, CN II-XII intact, Normal gait, Oriented X3 - Psychiatric Psychiatric exam: Normal affect, Normal mood - Skin Skin exam: Dry, Intact, Normal color, Warm <Kaitlin Reid - Last Filed: 06/15/18 18:49> Course Vital Signs 06/15/18 17:17 Temperature 98.0 F Pulse Rate [ 88 Pulse Ox Probe] Respiratory 20 Rate Blood Pressure 190/99 [Left Arm] Pulse Ox 99 - Reevaluation(s) Reevaluation #1: 06/15/18 18:49 care being assumed by dr diego Reevaluation #2: 06/15/18 18:49 ct is being done without iv contrast as pt just remembered she has an allergy to iodine. she is drinking oral contrast only <Kaitlin Reid - Last Filed: 06/15/18 18:49> Vital Signs 06/15/18 06/15/18 06/15/18 17:17 18:35 19:12 Temperature 98.0 F Pulse Rate [ 88 77 85 Pulse Ox Probe] Respiratory 20 16 16 Rate Blood Pressure 190/99 167/84 148/84 [Left Arm] Pulse Ox 99 99 97 06/15/18 06/15/18 20:00 20:51 Temperature Pulse Rate [ 88 80 Pulse Ox Probe] Respiratory 18 16 Rate Blood Pressure 184/87 150/90 [Left Arm] Pulse Ox 99 98 - Reevaluation(s) Reevaluation #3: The patient is doing better at this time but is still having AP. There has been no vomiting and she has had loose stools. The CT does demonstrate a partial SBO. We will admit the patient to the hospital and keep her NPO. I will consult with Dr. Stone about the case. I also did discuss the case with Yohana ([facility]OO[facility] APPRENTICE) and she does accept the patient for admission for Dr. Dumont. 06/15/18 21:03 Reevaluation #4: I did discuss the CT findings with the patient and the need to see her [employer] doctor for the L ovarian mass. 06/15/18 21:05 <Sincere Diego - Last Filed: 06/15/18 21:24> Medical Decision Making - Lab Data Result diagrams: 06/15/18 17:29 06/15/18 17:29 <Kaitlin Ried - Last Filed: 06/15/18 18:49> - Data Complexity MDM Data: Labs Ordered and/or Reviewed, X-Ray Ordered and/or Reviewed - Lab Data Result diagrams: 06/15/18 17:29 06/15/18 17:29 Lab Results 06/15/18 06/15/18 06/15/18 Range/Units 17:29 17:29 17:29 WBC 12.6 H (4.2-12.2) K/uL RBC 4.83 (3.80-5.40) M/uL Hgb 14.2 (11.6-16.0) gm/dl Hct 42.6 (35.0-47.0) % MCV 88.2 (81-97) fl MCH 29.4 (27-33) pg MCHC 33.3 (32-36) g/dl RDW 13.3 (11.5-14.5) % Plt Count 225 (130-400) K/uL MPV 11.0 H (7.4-10.4) fl Gran % 73.0 (47-80) % Lymphocytes % 18.2 (16-45) % Monocytes % 5.9 (0-9) % Eosinophils % 2.5 (0-6) % Basophils % 0.4 (0-6) % Sodium 141 (136-145) mmol/L Potassium 4.9 H (3.4-4.5) mmol/L Chloride 102 (98-107) mmol/L Carbon Dioxide 27.0 (22-29) mmol/L Anion Gap 12.0 (7-16) BUN 12 (6-20) mg/dL Creatinine 0.6 (0.5-0.9) mg/dL Estimated GFR > 60 mL/min Random Glucose 97 (74-109) mg/dL Calcium 9.4 (8.6-10.0) mg/dL Total Bilirubin 0.40 (0.2-1.0) mg/dL AST 21 (10.0-35.0) U/L ALT 15 (<33) U/L Alkaline Phosphatase 79 (35-104) U/L Total Protein 7.2 (6.6-8.7) g/dL Albumin 4.0 (4.0-5.0) g/dL Globulin 3.2 (1.4-4.8) gm/dL Albumin/Globulin Ratio 1.3 (1.1-1.8) Lipase 27 (13-60) U/L Urine Color Yellow Urine Appearance Clear Urine pH 5.5 (5.0-8.0) Ur Specific [place] 1.010 (1.002-1.030) Urine Protein Negative (NEGATIVE) Urine Glucose (UA) Negative (NEGATIVE) Urine Ketones Negative (NEGATIVE) Urine Blood Negative (NEGATIVE) Urine Nitrite Negative (NEGATIVE) Urine Bilirubin Negative (NEGATIVE) Urine Urobilinogen 0.2 (0.20 - 1.00) E.U./dL Ur Leukocyte Esterase Negative (NEGATIVE) - Radiology Data Radiology results: Report reviewed (CT: Partial SBO L lower abdomen. Also incidental finding of large L ovarian cyst/mass.) <Sincere Diego - Last Filed: 06/15/18 21:24> Disposition <Kaitlin Reid - Last Filed: 06/15/18 18:49> Disposition: Admit Decision to Admit: Admit from ER Decision to Admit Date: 06/15/18 Decision to Admit Time: 21:06 Accepting Physician: Julia Posadas Discussed w/Accepting Physician: 21:06 Time of Disposition: 21:06 <Sincere Diego - Last Filed: 06/15/18 21:24> Clinical Impression: Partial small bowel obstruction Disposition: Still a Patient at [facility] Condition: (2) Stable Forms: Patient Portal Access Quality - Blood Pressure Screening Does Patient Have Any of the Following: No Blood Pressure Classification: Hypertensive Reading Systolic Measurement: 190 Diastolic Measurement: 99 <Kaitlin Reid - Last Filed: 06/15/18 18:49> - Quality Measures Quality Measures: N/A - Blood Pressure Screening View Details: Yes Does Patient Have Any of the Following: No Blood Pressure Classification: Hypertensive Reading Systolic Measurement: 150 Diastolic Measurement: 90 Screening for High Blood Pressure: < First Hypertensive BP, F/U Documented > [ [id number]] First Hypertensive Follow-up Interventions: Referral to alternative/primary care provider. <Sincere Diego - Last Filed: 06/15/18 21:24>
[2018-06-15] MEDS ORDERED: 0.9 % SODIUM CHLORIDE 1000ML 1,000 ML IV ONE (18:03)
[2018-06-15] MEDS ORDERED: ONDANSETRON HCL IV 4 MG/2 ML VIAL IV ONE (18:03)
[2018-06-15] MEDS ORDERED: HYDROMORPHONE HCL 2 MG/ML VIAL IVP ONE ×2 (18:05→20:01)
[2018-06-15 18:15] LABS: BASO % 0.4 % (0-6); EOS % 2.5 % (0-6); HEMATOCRIT 42.6 % (35.0-47.0); HEMOGLOBIN 14.2 gm/dl (11.6-16.0); LYMPH % 18.2 % (16-45); MEAN CELL VOLUME 88.2 fl (81-97); MEAN CORPUSCULAR HEMOGLOBIN 29.4 pg (27-33); MEAN CORPUSCULAR HGB CONC 33.3 g/dl (32-36); MONO % 5.9 % (0-9); PLATELET COUNT 225 K/uL (130-400); RED BLOOD COUNT 4.83 M/uL (3.80-5.40); RED CELL DISTRIBUTION WIDTH 13.3 % (11.5-14.5); WHITE BLOOD COUNT W/O DIFF 12.6 K/uL (4.2-12.2)
[2018-06-15 18:16] LABS: URINE APPEARANCE CLEAR; URINE BILIRUBIN NEGATIVE (NEGATIVE); URINE BLOOD NEGATIVE (NEGATIVE); URINE COLOR YELLOW; URINE GLUCOSE (UA) NEGATIVE (NEGATIVE); URINE KETONE NEGATIVE (NEGATIVE); URINE LEUKOCYTE ESTERASE NEGATIVE (NEGATIVE); URINE NITRITE NEGATIVE (NEGATIVE); URINE PROTEIN NEGATIVE (NEGATIVE); URINE UROBILINOGEN 0.2 E.U./dL (0.20 - 1.00)
[2018-06-15 18:29] LABS: BLOOD UREA NITROGEN 12 mg/dL (6-20); CREATININE 0.6 mg/dL (0.5-0.9); EST GLOMERULAR FILTRATION RATE > 60 mL/min
[2018-06-15 18:30] LABS: TOTAL PROTEIN 7.2 g/dL (6.6-8.7)
[2018-06-15 18:32] LABS: GLUCOSE,RANDOM 97 mg/dL (74-109)
[2018-06-15 18:35] LABS: ALB/GLOB RATIO 1.3 (1.1-1.8); ALKALINE PHOSPHATASE 79 U/L (35-104); ALT/SGPT 15 U/L (<33); AST/SGOT 21 U/L (10.0-35.0); LIPASE 27 U/L (13-60)
[2018-06-15] MEDS ORDERED: CYCLOSPORINE OP SCH (22:22)
[2018-06-15] MEDS ORDERED: POTASSIUM CHLORIDE/D5-0.9%NACL 20 MEQ/1,000 ML BAG IV ONE (22:22)
[2018-06-15] MEDS ORDERED: PILOCARPINE HCL 5 MG PO SCH (22:22)
[2018-06-15] MEDS ORDERED: ALBUTEROL HFA 8 GM INHALER INH PRN ×3 (22:22→23:00)
[2018-06-15] MEDS ORDERED: INFLIXIMAB 100 MG IV SCH (22:22)
[2018-06-15] MEDS: HYDROMORPHONE HCL 2 MG/ML VIAL IV PRN (22:35)
[2018-06-15] MEDS: ONDANSETRON HCL IV 4 MG/2 ML VIAL IVP PRN (22:35)
[2018-06-15] MEDS: HYDROXYCHLOROQUINE SULFATE 200 MG TABLET PO SCH (22:38)
[2018-06-16] MEDS: HYDROMORPHONE HCL 2 MG/ML VIAL IV PRN ×2 (03:37→20:31)
[2018-06-16] MEDS: ONDANSETRON HCL IV 4 MG/2 ML VIAL IVP PRN ×2 (03:38→11:59)
[2018-06-16] MEDS ORDERED: PANTOPRAZOLE SODIUM IV 40 MG VIAL IV SCH (07:00)
--- NOTE | 2018-06-16 08:26 | History & Physical ---
History of Present Illness - Date of Service Date of Service for History & Physical: 06/16/18 - History of Present Illness Admitting Diagnosis: 1. Partial SBO History of Present Illness: Mrs. Felder is a 47 year-old female who presented to the ED on 06/15/18 with c/o of abdominal pain that started that day. She described the pain as "crampy ", she had a SBO 07/2017 and she stated that the pain was similar to what she experienced with her previous SBO. She recently finished a course of amoxicillin for bronchitis, dx on 06/06 in [facility]. She has had no bm for 3 days, but she has had small liquid stools, no vomiting, no fever. Her history includes HTN, bronchitis, headaches, partial bowel resection, goiter, RA, Sjogren's, and fibromyalgia. In the ED, her vitals were: BP 190/99, pulse ox 88, RR 20, 99% on room air, T 98.0F. UA negative, WBC 12.6, otherwise unremarkable. Abd CT with oral contrast (pt. allergy to IV contrast) demonstrated partial SBO left lower abdomen. CT also showed incidental finding of left ovarian mass, pt. was notified and instructed to f/u with her [facility]. Dr. Stone was consulted for her SBO by Dr. Diego and he advised to keep pt. NPO, admit for observation. 06/16/18: Pt. is sitting up in bed. She currently denies pain and nausea. She states that she feels much improved from yesterday. Her bowel sounds are active at this time, will try clear liquids. Pt. requested MOM for indigestion, she states that it also helped her to have a BM during her last admission for SBO. Will order clear liquids and continue to monitor. Travel Screening - Travel/Exposure Within Last 30 Days Have you traveled within the last 30 days?: No - Travel/Exposure Within Last Year Have you traveled outside the [place] in the last year?: No - Additonal Travel Details Have you been exposed to anyone with a communicable illness?: No - Travel Symptoms Symptom Screening: None Review of Systems Constitutional: Reports: As per HPI. Denies: Chills, Fever, Malaise, Night sweats, Weakness, Weight change Eyes: Reports: As per HPI. Denies: Eye discharge, Eye pain, Photophobia, Vision change ENT: Reports: As per HPI. Denies: Congestion, Dental pain, Ear pain, Epistaxis , Hearing loss, Throat pain Respiratory: Reports: As per HPI. Denies: Cough, Dyspnea, Hemoptysis, Stridor, Wheezes Cardiovascular: Reports: As per HPI. Denies: Arrhythmia, Chest pain, Dyspnea on exertion, Edema, Murmurs, Orthopnea, Palpitations, Paroxysmal nocturnal dyspnea, Rheumatic Fever, Syncope Endocrine: Reports: As per HPI. Denies: Fatigue, Heat or cold intolerance, Polydipsia, Polyuria Gastrointestinal: Reports: As per HPI, Abdominal pain, Constipation, Nausea. Denies: Diarrhea, Hematemesis, Hematochezia, Melena, Vomiting Genitourinary: Reports: As per HPI. Denies: Abnormal menses, Discharge, Dyspareunia, Dysuria, Frequency, Hematuria, Incontinence, Retention, Urgency Musculoskeletal: Reports: As per HPI. Denies: Arthralgia, Back pain, Gout, Joint swelling, Myalgia, Neck pain Skin: Reports: As per HPI. Denies: Bruising, Change in color, Change in hair/ nails, Lesions, Pruritus, Rash Neurological: Reports: As per HPI. Denies: Abnormal gait, Confusion, Headache, Numbness, Paresthesias, Seizure, Tingling, Tremors, Vertigo, Weakness Psychiatric: Reports: As per HPI. Denies: Anxiety, Auditory hallucinations, Depression, Homicidal thoughts, Suicidal thoughts, Visual hallucinations Hematological/Lymphatic: Reports: As per HPI. Denies: Anemia, Blood Clots, Easy bleeding, Easy bruising, Swollen glands Past Medical History - SOCIAL HISTORY Smoking Status: Never smoker Alcohol Use: None Drug Use: None - RESPIRATORY Hx Respiratory Disorders: Yes Hx Bronchitis: Yes Hx Pneumonia: Yes (last week) - CARDIOVASCULAR Hx Cardio Disorders: Yes Hx Hypertension: Yes - NEURO Hx Neuro Disorders: Yes Hx Headaches: Yes - GI Hx GI Disorders: Yes Hx Abdominal Pain: Yes Hx Reflux: Yes Hx Nausea/Vomiting: Yes Comment:: partial bowel resection - Hx Genitourinary Disorders: Yes Comment:: many ovarian cysts - ENDOCRINE Hx Endocrine Disorders: Yes Hx Thyroid Disease: Yes (goiter) - MUSCULOSKELETAL Hx Musculoskeletal Disorders: Yes Hx Arthritis: Yes (Rheumatoid) Comment:: fibromyalgia, shogrins - PSYCH Hx Psych Problems: No - HEMATOLOGY/ONCOLOGY Hx Hematology/Oncology Disorders: No Family Medical History Any Significant Family History?: Yes Family Hx Comment (NOT TO BE USED IN PLACE OF ITEMS BELOW): Parkinson's w/mom. brother has chrons Hx Diabetes: Father Hx Heart Disease: Father, Brother/Sister Hx HTN: Father, Brother/Sister Hx Kidney Disease: Father, Brother/Sister H&P Meds/Allergies - Allergies Allergies: Allergies Allergy/AdvReac Type Severity Reaction Status Date / Time egg Allergy NAUSEA AND Verified 06/15/18 20:27 VOMITING iodine Allergy ANAPHYLAXIS Verified 06/15/18 20:27 Latex, Natural Rubber Allergy RASH Verified 06/15/18 20:27 levofloxacin [From Levaquin] Allergy HIVES Verified 06/15/18 20:27 naproxen Allergy NAUSEA AND Verified 06/15/18 20:27 VOMITING NSAIDS (Non-Steroidal Allergy vertigo Verified 06/15/18 20:27 Anti-Inflamma sulfamethoxazole Allergy RAPID Verified 06/15/18 20:27 [From Bactrim] HEART RATE trimethoprim [From Bactrim] Allergy RAPID Verified 06/15/18 20:27 HEART RATE [id number] Antimigraine Allergy ALTERED Verified 06/15/18 20:27 Agents MENTAL STATUS - Home Medications Home Medications Medication Instructions Recorded Confirmed Last Taken Amoxicillin/Potassium Clav 1 tab PO BID 06/15/18 06/15/18 06/15/18 [Augmentin 875-125 Tablet] Previous Rx's Medication Instructions Recorded Lisinopril 10 mg PO DAILY #30 tab 07/18/16 - Active Medications Active Medications: Current Medications Albuterol Sulfate (Ventolin Hfa) 1 puff INH Q4HR PRN PRN Reason: DIFFICULTY IN BREATHING Albuterol Sulfate (Ventolin Hfa) 2 puff INH Q4HR PRN PRN Reason: DIFFICULTY IN BREATHING Hydromorphone HCl (Dilaudid) 0.5 mg IV Q4H PRN PRN Reason: ABDOMINAL PAIN Last Admin: 06/16/18 03:37 Dose: 0.5 mg Hydroxychloroquine Sulfate (Plaquenil) 200 mg PO BID DARYA Last Admin: 06/15/18 22:38 Dose: Not Given Potassium Chloride/Dextrose/Sod Cl () 20 meq in 1,000 mls @ 100 mls/hr IV NOW ONE Stop: 06/16/18 08:21 Last Admin: 06/15/18 22:36 Dose: 100 mls/hr Infliximab (Remicade) [facility] Lisinopril (Zestril) 10 mg PO DAILY [facility] Non-Formulary Medication (Cyclosporine [Restasis]) 1 drop OP BID [facility] Last Admin: 06/15/18 22:38 Dose: Not Given Non-Formulary Medication (Pilocarpine Hcl [Salagen]) 5 mg PO TID [facility] Last Admin: 06/15/18 22:38 Dose: Not Given Ondansetron HCl (Zofran) 4 mg IVP Q4H PRN PRN Reason: NAUSEA Last Admin: 06/16/18 03:38 Dose: 4 mg Pantoprazole S[facility] Last Admin: 06/16/18 06:05 Dose: 40 mg Physical Exam - Vital Signs Vital Signs: Vital Signs - Last 24 Hrs Temp Pulse Pulse Resp BP BP Pulse Ox 06/16/18 04:00 97.6 F 77 20 169/89 97 06/15/18 22:22 97.6 F 78 20 168/66 97 06/15/18 22:06 88 18 156/81 95 06/15/18 20:51 80 16 150/90 98 06/15/18 20:00 88 18 184/87 99 06/15/18 19:12 85 16 148/84 97 06/15/18 18:35 77 16 167/84 99 06/15/18 17:17 98.0 F 88 20 190/99 99 - General General Appearance: Alert, Oriented x3, Cooperative, No acute distress Limitations: No limitations - Head Head exam: Normal inspection - Eye Eye exam: Normal appearance, PERRL, EOMI Pupils: Normal accommodation - ENT ENT exam: Normal exam, Mucous membranes moist, Normal external ear exam, Normal orophraynx Ear exam: Normal external inspection. negative: External canal tenderness Nasal Exam: Normal inspection. negative: Discharge, Sinus tenderness Mouth exam: Normal external inspection, Tongue normal Teeth exam: Normal inspection. negative: Dental caries Throat exam: Normal inspection. negative: Tonsillar erythema, Tonsillar exudate - Neck Neck exam: Normal inspection, Full ROM. negative: Tenderness - Respiratory Respiratory exam: Normal lung sounds bilaterally. negative: Respiratory distress - Cardiovascular Cardiovascular Exam: Regular rate, Normal rhythm, Normal heart sounds - GI/Abdominal GI/Abdominal exam: Soft, Normal bowel sounds, Distended, Guarding, Tenderness ( diffusely) - Rectal Rectal exam: Deferred - exam: Deferred - Extremities Extremities exam: Normal inspection, Full ROM, Normal capillary refill. negative: Tenderness - Back Back exam: Reports: Normal inspection, Full ROM. Denies: Muscle spasm, Rash noted, Tenderness - Neurological Neurological exam: Alert, CN II-XII intact, Normal gait, Oriented X3 - Psychiatric Psychiatric exam: Normal affect, Normal mood - Skin Skin exam: Dry, Intact, Normal color, Warm Results - Labs Result Diagrams: 06/15/18 17:29 06/15/18 17:29 Labs Last 24 Hours: Laboratory Results - last 24 hr 06/15/18 06/15/18 06/15/18 17:29 17:29 17:29 WBC 12.6 H RBC 4.83 Hgb 14.2 Hct 42.6 MCV 88.2 MCH 29.4 MCHC 33.3 RDW 13.3 Plt Count 225 MPV 11.0 H Gran % 73.0 Lymphocytes % 18.2 Monocytes % 5.9 Eosinophils % 2.5 Basophils % 0.4 Sodium 141 Potassium 4.9 H Chloride 102 Carbon Dioxide 27.0 Anion Gap 12.0 BUN 12 Creatinine 0.6 Estimated GFR > 60 Random Glucose 97 Calcium 9.4 Total Bilirubin 0.40 AST 21 ALT 15 Alkaline Phosphatase 79 Total Protein 7.2 Albumin 4.0 Globulin 3.2 Albumin/Globulin Ratio 1.3 Lipase 27 Urine Color Yellow Urine Appearance Clear Urine pH 5.5 Ur Specific [place] 1.010 Urine Protein Negative Urine Glucose (UA) Negative Urine Ketones Negative Urine Blood Negative Urine Nitrite Negative Urine Bilirubin Negative Urine Urobilinogen 0.2 Ur Leukocyte Esterase Negative - Imaging and Cardiology CT scan - abdomen Status: Pending (Partial SBO LLQ) VTE H&P Assessment - Risk for VTE Risk for VTE: Yes Risk Level: Very Low Risk Assessment Date: 06/16/18 Risk Assessment Time: 08:27 VTE Orders Placed or Will Be Placed: Yes Plan - Detailed Diagnosis and Plan (1) Partial small bowel obstruction Current Visit: Yes Status: Acute Base Code: K56.600 - PARTIAL INTESTINAL OBSTRUCTION, UNSPECIFIED TO CAUSE Comment: 06/16/18: -Left lower abdomen partial SBO demonstrated on CT with oral contrast -Dr. Stone consulted by Dr. Diego, recommended admission, NPO, IVF -Plan to advance slowly to clear liquids today as tolerated, will continue to monitor (2) Ovarian mass, left Current Visit: Yes Status: Acute Base Code: N83.9 - NONINFLAMMATORY DISORD OF OVARY, FALLOP & BROAD LIGMT, UNSP Comment: 06/16/18: -Left ovarian mass demonstrated on abd CT -Recommending to f/u with [facility] [facility] after discharge for further evaluation (3) At risk for deep venous thrombosis Current Visit: Yes Status: Acute Base Code: Z91.89 - OTH PERSONAL RISK FACTORS, NOT ELSEWHERE CLASSIFIED Comment: 06/16/18: -Pt. is at low risk for DVT due to decreased mobility from hospitalization -40mg SC lovenox qhs ordered for prophylaxis (4) Full code status Current Visit: Yes Status: Acute Base Code: Z78.9 - OTHER SPECIFIED HEALTH STATUS Comment: 06/16/18: -Pt. is a full code
[2018-06-16] MEDS ORDERED: MAGNESIUM HYDROXIDE 30 ML UDC PO PRN (09:17)
[2018-06-16 09:26] LABS: HEMOGLOBIN 12.7 gm/dl (11.6-16.0); MEAN CELL VOLUME 89.9 fl (81-97); MEAN CORPUSCULAR HEMOGLOBIN 29.3 pg (27-33); MEAN CORPUSCULAR HGB CONC 32.6 g/dl (32-36); MEAN PLATELET VOLUME 10.7 fl (7.4-10.4); PLATELET COUNT 200 K/uL (130-400); RED BLOOD COUNT 4.34 M/uL (3.80-5.40); RED CELL DISTRIBUTION WIDTH 13.2 % (11.5-14.5)
[2018-06-16] MEDS: HYDROXYCHLOROQUINE SULFATE 200 MG TABLET PO SCH (09:26)
[2018-06-16] MEDS ORDERED: LISINOPRIL 10 MG TABLET PO SCH (10:00)
[2018-06-16 10:17] LABS: ALB/GLOB RATIO 1.3 (1.1-1.8); ALBUMIN 3.3 g/dL (4.0-5.0); ALKALINE PHOSPHATASE 73 U/L (35-104); ALT/SGPT 10 U/L (<33); AST/SGOT 13 U/L (10.0-35.0); BLOOD UREA NITROGEN 9 mg/dL (6-20); CREATININE 0.5 mg/dL (0.5-0.9); EST GLOMERULAR FILTRATION RATE > 60 mL/min; GLUCOSE,RANDOM 101 mg/dL (74-109); TOTAL PROTEIN 5.9 g/dL (6.6-8.7)
[2018-06-16] MEDS ORDERED: HYDRALAZINE 20MG/ML VIAL IV ONE (11:21)
[2018-06-16] MEDS ORDERED: ACETAMINOPHEN 325 MG TAB PO PRN (11:22)
[2018-06-16] MEDS ORDERED: FUROSEMIDE IV 20MG/2ML VIAL IVP ONE (12:12)
[2018-06-16] MEDS ORDERED: DIPHENHYDRAMINE HCL 50 MG/ML VIAL IVP ONE (12:12)
[2018-06-16] MEDS ORDERED: LEVALBUTEROL HCL 1.25 MG/3 ML INH PRN (12:22)
--- NOTE | 2018-06-16 18:05 | Discharge Summary ---
Providers Discharge Summary Date: 06/16/18 Date of admission: 06/15/18 22:12 Expected Date of Discharge: 06/16/18 Attending physician: EMPERATRIZ CHOUDHARY Primary care physician: MARTIN LAGOS D.O. Physical Exam - Vital Signs Vital Signs: Vital Signs - Last 24 Hrs Temp Pulse Pulse Resp BP BP Pulse Ox 06/16/18 16:08 99.5 F 114 H 16 138/75 94 L 06/16/18 14:33 99.7 F H 107 H 16 126/70 95 06/16/18 13:12 102 H 20 06/16/18 12:40 100.8 F H 112 H 18 150/80 95 06/16/18 12:28 79 20 98 06/16/18 11:15 100.1 F H 102 H 18 214/95 97 06/16/18 08:56 77 20 06/16/18 08:00 97.9 F 92 H 18 195/97 97 06/16/18 04:00 97.6 F 77 20 169/89 97 06/15/18 22:22 97.6 F 78 20 168/66 97 06/15/18 22:06 88 18 156/81 95 06/15/18 20:51 80 16 150/90 98 06/15/18 20:00 88 18 184/87 99 06/15/18 19:12 85 16 148/84 97 06/15/18 18:35 77 16 167/84 99 - General General Appearance: Alert, Oriented x3, Cooperative, Moderate distress Limitations: No limitations - Head Head exam: Normal inspection - Eye Eye exam: Normal appearance, PERRL, EOMI Pupils: Normal accommodation - ENT ENT exam: Normal exam, Mucous membranes moist, Normal external ear exam, Normal orophraynx Ear exam: Normal external inspection. negative: External canal tenderness Nasal Exam: Normal inspection. negative: Discharge, Sinus tenderness Mouth exam: Normal external inspection, Tongue normal Teeth exam: Normal inspection. negative: Dental caries Throat exam: Normal inspection. negative: Tonsillar erythema, Tonsillar exudate - Neck Neck exam: Normal inspection, Full ROM. negative: Tenderness - Respiratory Respiratory exam: Normal lung sounds bilaterally. negative: Respiratory distress - Cardiovascular Cardiovascular Exam: Regular rate, Normal rhythm, Normal heart sounds - GI/Abdominal GI/Abdominal exam: Soft, Normal bowel sounds, Distended, Guarding, Tenderness ( diffusely) - Rectal Rectal exam: Deferred - exam: Deferred - Extremities Extremities exam: Normal inspection, Full ROM, Normal capillary refill. negative: Tenderness - Back Back exam: Reports: Normal inspection, Full ROM. Denies: Muscle spasm, Rash noted, Tenderness - Neurological Neurological exam: Alert, CN II-XII intact, Normal gait, Oriented X3 - Psychiatric Psychiatric exam: Normal affect, Normal mood - Skin Skin exam: Dry, Intact, Normal color, Warm Hospitalization - Hospitalization Admission Diagnosis: 1. Partial SBO - Problem List/Discharge Diagnosis (1) Partial small bowel obstruction Current Visit: Yes Status: Acute Base Code: K56.600 - PARTIAL INTESTINAL OBSTRUCTION, UNSPECIFIED TO CAUSE Comment: 06/16/18: -Left lower abdomen partial SBO demonstrated on CT with oral contrast -Dr. Stone consulted by Dr. Diego, recommended admission, NPO, IVF -Plan to advance slowly to clear liquids today as tolerated, will continue to monitor -Pt. developed fever this afternoon, elevated HR, she did have 1 semi-formed bowel movement, but then worsening left lower abdominal pain. -Called Dr. Stone at 1800- he advised to transfer to [facility] for further evaluation (2) Ovarian mass, left Current Visit: Yes Status: Acute Base Code: N83.9 - NONINFLAMMATORY DISORD OF OVARY, FALLOP & BROAD LIGMT, UNSP Comment: 06/16/18: -Left ovarian mass demonstrated on abd CT -Recommending to f/u with SWITCHER after discharge for further evaluation (3) At risk for deep venous thrombosis Current Visit: Yes Status: Acute Base Code: Z91.89 - OTH PERSONAL RISK FACTORS, NOT ELSEWHERE CLASSIFIED Comment: 06/16/18: -Pt. is at low risk for DVT due to decreased mobility from hospitalization -40mg SC lovenox qhs ordered for prophylaxis (4) Full code status Current Visit: Yes Status: Acute Base Code: Z78.9 - OTHER SPECIFIED HEALTH STATUS Comment: 06/16/18: -Pt. is a full code - Disposition Transfer to [facility], Dr. Stone to accept patient - Hospitalization Course Disposition: Acute Care Hospital Transfer Hospital Course: Mrs. Felder is a 47 year-old female who presented to the ED on 06/15/18 with c/o of abdominal pain that started that day. She described the pain as "crampy ", she had a SBO 07/2017 and she stated that the pain was similar to what she experienced with her previous SBO. She recently finished a course of amoxicillin for bronchitis, dx on 06/06 in [facility]. She has had no bm for 3 days, but she has had small liquid stools, no vomiting, no fever. Her history includes HTN, bronchitis, headaches, partial bowel resection, goiter, RA, Sjogren's, and fibromyalgia. In the ED, her vitals were: BP 190/99, pulse ox 88, RR 20, 99% on room air, T 98.0F. UA negative, WBC 12.6, otherwise unremarkable. Abd CT with oral contrast (pt. allergy to IV contrast) demonstrated partial SBO left lower abdomen. CT also showed incidental finding of left ovarian mass, pt. was notified and instructed to f/u with her SWITCHER. Dr. Stone was consulted for her SBO by Dr. Diego and he advised to keep pt. NPO, admit for observation. 06/16/18: 0830: Pt. is sitting up in bed. She currently denies pain and nausea. She states that she feels much improved from yesterday. Her bowel sounds are active at this time, will try clear liquids. Pt. requested MOM for indigestion , she states that it also helped her to have a BM during her last admission for SBO. Will order clear liquids and continue to monitor. 1800: Pt. developed a fever late this morning, elevated BP and she became tachycardic. Fever improved with tylenol and BP returned to baseline with 20mg IVP hydralazine. Chest xray did show some atelectasis when compared to xray on 06/06, 20mg lasix administered. Per nursing, pt. did have a med-size bowel movement. Nursing called around 1745 and reported that the pt. has become increasingly painful in her left lower abdomen. Dr. Stone was consulted and he advised to transfer to [facility] for further management. PCP: Dr. Lagos General surgeon: Dr. Stone Procedures: Imaging and X-Rays 06/15/18 18:03 ABDOMEN/PELVIS WO CONTRAST [CT] Stat 06/16/18 11:24 CHEST 1 VIEW [RAD] Stat Cardiology Procedures 06/16/18 13:00 Telemetry [Tour Escort] NOW Abnormal Labs: Abnormal Lab Results 06/15/18 06/15/18 06/16/18 Range/Units 17:29 17:29 07:10 WBC 12.6 H (4.2-12.2) K/uL MPV 11.0 H 10.7 H (7.4-10.4) fl Lymphocytes 8.0 L (16-45) % Potassium 4.9 H (3.4-4.5) mmol/L Calcium (8.6-10.0) mg/dL Total Protein (6.6-8.7) g/dL Albumin (4.0-5.0) g/dL 06/16/18 Range/Units 07:10 WBC (4.2-12.2) K/uL MPV (7.4-10.4) fl Lymphocytes (16-45) % Potassium (3.4-4.5) mmol/L Calcium 8.2 L (8.6-10.0) mg/dL Total Protein 5.9 L (6.6-8.7) g/dL Albumin 3.3 L (4.0-5.0) g/dL Condition at Discharge: (2) Stable VTE Discharge VTE Reason For No Overlap Therapy: Not Indicated (acute care hospital transfer) Discharge Medications - Discharge Medications Home Medications: Ambulatory Orders Hydroxychloroquine Sulfate [Plaquenil] 200 mg PO BID 08/15/14 [Last Taken ] Cyclosporine [Restasis] 1 drop OP BID drop 10/12/15 [Last Taken 06/15/18] Infliximab [Remicade] 100 mg IV QMONTH vial 10/12/15 [Last Taken 06/15/18] Pilocarpine HCl [Salagen] 5 mg PO TID tab 10/12/15 [Last Taken 06/15/18] Lisinopril 10 mg PO DAILY #30 tab 07/18/16 [Last Taken 06/15/18] Acetaminophen [Tylenol 325Mg] 650 mg PO Q4H PRN tablet 06/16/18 [Last Taken Unknown] Hydromorphone HCl [Dilaudid] 0.5 mg IV Q4H PRN vial 06/16/18 [Last Taken Unknown] Infliximab [Remicade] 100 mg IV QMONTH vial 06/16/18 [Last Taken Unknown] Levalbuterol HCl (1.25MG/3Ml) [Xopenex (1.25MG/3Ml)] 1.25 mg INH RESP.Q6H PRN nebu 06/16/18 [Last Taken Unknown] Ondansetron HCl IV [Zofran] 4 mg IVP Q4H PRN vial 06/16/18 [Last Taken Unknown] Discharge Plan - Discharge Instructions Activity at Discharge: Resume Usual Activities As Tolerated Diet at Discharge: Other (NPO) Quality Measures - Quality Measures Quality Measures: Documentation of Current Medications in Medical Record, Screening for High Blood Pressure and F/U Documented - Current Medications Quality Measure: Measure #130: Documentation of Current Medications Documentation of Current Medications: <Current Medications Documented/Reviewed> [[id number]] - Blood Pressure Screening Quality Measure: Screening for High Blood Pressure and Follow-Up Documented Does Patient Have Any of the Following: Active Dx of HTN Blood Pressure Classification: Pre-Hypertensive BP Reading Systolic Measurement: 156 Diastolic Measurement: 81 Screening for High Blood Pressure: Patient Exclusion, Hx of HTN [G9744] - Elder Abuse Suspicion Index EASI Reference Information: Alex MACHADO, Marco A C, Valeria D, [place].Development and validation of a tool to assist physicians identification of elder abuse: The Elder Abuse Suspicion Index (EASI ). Journal of Elder Abuse and Neglect, 2008; 20 (3): 276-300.
[2018-06-16] MEDS ORDERED: METRONIDAZOLE IVPB 500 MG/100 ML BAG IVPB ONE (19:37)
[2018-06-16] MEDS ORDERED: 0.9 % SODIUM CHLORIDE 1000ML 1,000 ML IV PRN (19:40)
[2018-06-16 20:25] LABS: BASO % 0.2 % (0-6); EOS % 0.2 % (0-6); GRAN % 82.6 % (47-80); HEMATOCRIT 39.6 % (35.0-47.0); HEMOGLOBIN 13.1 gm/dl (11.6-16.0); LYMPH % 10.2 % (16-45); MEAN CELL VOLUME 88.8 fl (81-97); MEAN CORPUSCULAR HEMOGLOBIN 29.4 pg (27-33); MEAN CORPUSCULAR HGB CONC 33.1 g/dl (32-36); MEAN PLATELET VOLUME 10.2 fl (7.4-10.4); MONO % 6.8 % (0-9); PLATELET COUNT 207 K/uL (130-400); RED BLOOD COUNT 4.46 M/uL (3.80-5.40); RED CELL DISTRIBUTION WIDTH 13.3 % (11.5-14.5); WHITE BLOOD COUNT W/O DIFF 10.9 K/uL (4.2-12.2)
[2018-06-16 20:34] LABS: BLOOD UREA NITROGEN 7 mg/dL (6-20); CREATININE 0.6 mg/dL (0.5-0.9); EST GLOMERULAR FILTRATION RATE > 60 mL/min
[2018-06-16 20:35] LABS: TOTAL PROTEIN 6.2 g/dL (6.6-8.7)
[2018-06-16 20:37] LABS: GLUCOSE,RANDOM 100 mg/dL (74-109)
[2018-06-16 20:39] LABS: ALB/GLOB RATIO 1.2 (1.1-1.8); ALBUMIN 3.4 g/dL (4.0-5.0); ALKALINE PHOSPHATASE 78 U/L (35-104); ALT/SGPT 6 U/L (<33); AST/SGOT 11 U/L (10.0-35.0)
[2018-06-16] MEDS ORDERED: CEFTRIAXONE SODIUM 1 GM in 0.9 % SODIUM CHLORIDE 100ML 100 ML IVPB SCH (21:00)
[2018-06-16] MEDS ORDERED: ENOXAPARIN 40 MG/0.4 ML SYR SQ SCH (22:00)
--- NOTE | 2018-06-18 08:25 | CT SCAN REPORT ---
EXAM: CT OF THE ABDOMEN AND PELVIS WITHOUT IV CONTRAST HISTORY: ABDOMINAL PAIN, DIARRHEA. TECHNIQUE: Helical CT scan of the abdomen and pelvis was obtained without intravenous contrast. Oral contrast was administered. Comparison: CT of the abdomen and pelvis 08/03/17, partial small bowel obstruction. FINDINGS: The lung bases show minimal dependent atelectasis. Limited evaluation of the solid organs without intravenous contrast. No stones in the kidneys, ureters, or urinary bladder. No hydronephrosis, renal swelling , or perinephric fat stranding. The liver and spleen have a normal size. No calcified gallstones. No peripancreatic inflammatory change. The adrenal glands have normal morphology. The small bowel is again mildly distended in the left lower quadrant, similar to previous exam. There is again mild fat stranding off the small bowel mesentery in the left lower quadrant of the abdomen. Interval development of a multicystic mass in the left pelvis presumably arising from the left ovary which measures 9.2 x 5.5 x 8.6 cm. No definite mass in the right ovary, although not optimally evaluated without contrast. The uterus is absent. The urinary bladder is unremarkable. The bony structures show moderate degenerative change at L4-L5. No suspicious lesions. No ascites or adenopathy. there is a midline surgical scar. IMPRESSION: 1. THE SMALL BOWEL IS AGAIN MILDLY DILATED IN THE LEFT LOWER QUADRANT OF THE ABDOMEN, AGAIN LIKELY REPRESENTING A PARTIAL SMALL BOWEL OBSTRUCTION AT THE SAME SIDE ON PREVIOUS CT IN JULY OF 2017. 2. INCIDENTAL LEFT OVARIAN CYSTIC MASS, LIKELY NEOPLASTIC. 3. NO EVIDENCE OF UROLITHIASIS OR OBSTRUCTIVE UROPATHY. JOB NUMBER: [id number] [facility]
--- NOTE | 2018-06-18 08:29 | RADIOLOGY REPORT ---
EXAM: CHEST, SINGLE VIEW HISTORY: FLUID OVERLOAD. TECHNIQUE: Frontal portable view of the chest in the upright position was obtained. Comparison: Chest x-ray 06/06/[address] and lung bases from CT of the abdomen . FINDINGS: Frontal portable view of the chest in the upright position shows slightly decreased lung volumes. A few linear opacities are present in the lung bases. The cardiomediastinal silhouette is within normal limits. No pulmonary vascular congestion. No pleural effusion or pneumothorax. Mild degenerative changes are seen in the right acromioclavicular joint. IMPRESSION: MILD DECREASED LUNG VOLUMES AND BIBASILAR SCAR OR SUBSEGMENTAL ATELECTASIS. NO EVIDENCE OF CONGESTIVE HEART FAILURE. JOB NUMBER: [id number] [facility]
== END 2018-06-16 21:31 | disposition short-term general hospital (02) ==
LOC: ER 16:58 → MEDSURG 22:12
PROVIDERS: ADMIT Internal Medicine; ATTEND Internal Medicine
DX: K56.600 Partial intestinal obstruction, unspecified as to cause (principal); N83.9 Noninflammatory disorder of ovary, fallopian tube and broad ligament, unspecified; M06.9 Rheumatoid arthritis, unspecified; M79.7 Fibromyalgia; Z87.19 Personal history of other diseases of the digestive system; Z87.442 Personal history of urinary calculi; I10 Essential (primary) hypertension; M35.00 Sjogren syndrome, unspecified
CPT/HCPCS: 99285 ×2; 96376; 96374; 96375; 83690; 85025 ×2; 80053 ×2; 81003; 87040; 85027; 71045; 74176; 94640; G0378 ×2; J2405 ×2; J1170 ×2; J3490; 99220; C9113; J1200; J1940; J3480; J7030